=== PATIENT | female | born 1960 | race Two or more races ===

== ENCOUNTER 2024-09-04 15:43 | Emergency (ER) | payer MEDICARE, MEDICAID, SELFPAY ==
[2024-09-04 15:45] VITALS: BMI 28.1
[2024-09-04 16:11] VITALS: BP 123/73; PULSE 84; RESP 17; TEMP 36.8; O2SAT 99
--- NOTE | 2024-09-04 16:18 | PD.EDADULT ---
ED General RME/HPI General Chief complaint: General Adult/Misc Complain Stated complaint: HIGH BLOOD PRESSURE CRAMPED FINGER Time Seen by Provider: 09/04/24 16:00 Source: patient Arrival date/time: 09/04/24 15:43 63-year-old female with no known medical history presents to the emergency room with a chief complaint of a cramping to her left hand Mode of arrival: ambulatory Limitations: no limitations Related Data Allergies Allergy/AdvReac Type Severity Reaction Status Date / Time NKA* Allergy Uncoded 09/04/24 15:46 Review of Systems Review of Systems Systems Reviewed: All systems reviewed, normal except as documented Constitutional Constitutional: Reports system reviewed and no additional complaints, except as documented, Denies fatigue, Denies fever(s), Denies headache(s) and Denies weakness Eyes Eyes: Reports system reviewed and no additional complaints, except as documented, Denies blurry vision and Denies change in vision ENT Ears, Nose, Mouth, and Throat: Reports system reviewed and no additional complaints, except as documented, Denies otalgia, Denies headache(s), Denies nasal congestion, Denies throat swelling and Denies vertigo Cardiovascular Cardiovascular: Reports system reviewed and no additional complaints, except as documented, Denies chest pain, Denies dyspnea and Denies dyspnea on exertion Respiratory Respiratory: Reports system reviewed and no additional complaints, except as documented, Denies chest congestion, Denies cough, Denies dyspnea, Denies dyspnea on exertion and Denies wheezing Gastrointestinal Gastrointestinal: Reports system reviewed and no additional complaints, except as documented, Denies abdominal pain, Denies cramping, Denies nausea and Denies vomiting Genitourinary Genitourinary: Reports system reviewed and no additional complaints, except as documented Musculoskeletal Musculoskeletal: Reports system reviewed and no additional complaints, except as documented and Denies back pain Integumentary/Breasts Skin/Breast: Reports system reviewed and no additional complaints, except as documented and Denies wounds Neurologic Neurologic: Reports system reviewed and no additional complaints, except as documented, Denies confusion, Denies headache(s), Denies lack of coordination, Denies vertigo and Denies weakness Psychiatric Psychiatric: Reports system reviewed and no additional complaints, except as documented, Denies anxiety, Denies confusion, Denies depression, Denies paranoia, Denies suicidal ideation and Denies tactile hallucinations Endocrine Endocrine: Reports system reviewed and no additional complaints, except as documented and Denies fatigue Hematologic/Lymphatic Hematologic/Lymphatic: Reports system reviewed and no additional complaints, except as documented and Denies lymphadenopathy Allergic/Immunologic Allergic/Immunologic: Reports system reviewed and no additional complaints, except as documented, Denies throat swelling, Denies urticaria and Denies wheezing ED Exam General Limitations: Present no limitations General appearance: Present alert and in no apparent distress Head Head exam: Present atraumatic Eye Eye exam: Present normal appearance, PERRL and EOMI ENT ENT exam: Present normal exam, normal oropharynx and mucous membranes moist Neck Neck exam: Present normal inspection, full ROM and trachea midline Chest Chest inspection: Present normal inspection and symmetric chest wall rise Respiratory Respiratory exam: Present normal lung sounds bilaterally Cardiovascular Cardiovascular exam: Present regular rate, normal rhythm and normal heart sounds Abdominal Exam Abdominal exam: Present soft and normal bowel sounds Extremities Exam Extremities exam: Present normal inspection and full ROM Back Exam Back exam: Present normal inspection and full ROM Neurological Exam Neurological exam: Present alert, oriented X3 and CN II-XII intact Psychiatric Psychiatric exam: Present normal affect and normal mood Skin Skin exam: Present warm, dry, intact and normal color Course Quality Measures none Orders Category Date Time Status CBC Stat Lab 09/04/24 16:33 Completed CMP [Comprehensive Metabolic Panel] Stat Lab 09/04/24 16:33 Completed Potassium Chloride [K-Dur] Med 09/04/24 17:22 Discontinued 40 meq PO X1 ONE Vital Signs Vital signs: Vital Signs Temperature 98.3 F 09/04/24 16:11 Pulse Rate 84 09/04/24 16:11 Respiratory Rate 17 09/04/24 16:11 Blood Pressure 123/73 09/04/24 16:11 Pulse Oximetry (%) 99 09/04/24 16:11 Oxygen Delivery Method Room Air 09/04/24 16:11 Discharge Plan Plan Patient Disposition: HOME (Self Care) Discharge Disposition comment: Stable Prescriptions/Referrals Referrals: Eros Holm MD [Primary Care Provider] - In 1 week Problem List Clinical Impression: Hand cramps, Hypokalemia Patient/Caregiver Discharge Instructions Education Materials: ED Muscle Spasm Additional Instructions: Por favor, consulte con reis m?dico de cabecera en las pr?ximas 24 a 48 horas. Zari an?lisis de mainor estaban dentro de los l?mites normales. Reis potasio estaba ligeramente disminuido, lo cual podr?a ser la causa de zari calambres. Si observa cualquier signo de empeoramiento de los signos o s?ntomas, acuda a urgencias de inmediato. Print Language: Egyptian Stand Alone Forms: Malia Award Info., Patient Portal Info Letter PA/LUCILLE Supervising Physician PA/IT SALES CONSULTANT Supervising Physician: Dr Marilu MAGUIRE Narrative MDM hospital course: 63-year-old female with no known medical history presents to the emergency room with a chief complaint of a cramping to her left hand Patient is hemodynamically stable and in no apparent distress Physical examination just shows some cramping that is now resolved to the patient's left hand. The patient denies any chest pain any shortness of breath any numbness to her hands feet or anywhere else in the body. CBC CMP were completed and showed some mild hypokalemia. Potassium was given to the patient Patient was discharged and educated to follow-up with primary care provider in the next 24 to 48 hours and return to the emergency room for any evidence of worsening signs or symptoms Clinical Information Provided by none Medical Records Reviewed None Meds/Rx Considered, not Ordered None Labs/Rad/Tests considered, not Ordered None Chronic Illness/Social Conditions which may negatively complicate care or outcome(s)-explain: None or not applicable EKG EKG not done Lab Interpretation Labs: none Imaging Imaging interpretation: none Medication Administration(s) Medication Administration History Discontinued Medications Potassium Chloride (Potassium Chloride 20 Meq Tabcr) 40 meq PO X1 ONE Stop: 09/04/24 17:23 Last Admin: 09/04/24 17:41 Dose: 40 meq Documented By: OA Diagnosis Differential diagnosis: Hypokalemia/electrolyte imbalance/AR Differential dx and/or dx ruled out: Electrolyte imbalance/AR Most likely dx, and/or detailed dx discussion: Hypokalemia Dispositon Disposition: Discharge Home
[2024-09-04 16:54] LABS: Basophils % (Auto) 1 % (0-2.5); Eosinophils # (Auto) 0.1 Thou/mm3 (0.0-0.5); Eosinophils % (Auto) 1 % (0-10); Hematocrit 27.5 % (36.0-46.0); Hemoglobin 9.6 g/dL (12.0-16.0); Immature Granulocytes % (Auto) 0 % (0-0); Immature Granulocytes Auto 0.01 Thou/mm3 (0.00-0.00); Lymphocytes # (Auto) 0.8 Thou/mm3 (1.0-4.8); Lymphocytes % (Auto) 18 % (10-50); Mean Corpuscular HGB Conc 34.9 g/dl (31.0-37.0); Mean Corpuscular Hemoglobin 29.4 pg (25.0-35.0); Mean Corpuscular Volume 84 fL (80-100); Monocytes # (Auto) 0.3 Thou/mm3 (0.0-0.8); Monocytes % (Auto) 7 % (0-12); Neutrophils # (Auto) 3.2 Thou/mm3 (1.8-7.7); Neutrophils % (Auto) 74 % (37-80); Nucleated Red Blood Cell % 0 /100 WBC (0); Platelet Count 162 Thou/mm3 (140-440); RDW Standard Deviation 39.5 fL (36.4-46.3); Red Blood Count 3.27 Miln/mm3 (4.00-5.20); White Blood Count 4.3 Thou/mm3 (3.6-11.0)
[2024-09-04 17:05] LABS: Alanine Aminotransferase 14 U/L (10-49); Albumin, Serum 4.3 gm/dL (3.4-4.8); Albumin/Globulin Ratio 2.5 (1.2-2.2); Alkaline Phosphatase 67 U/L (46-116); Anion Gap 11 (7-16); Aspartate Amino Transferase 20 U/L (0-34); BUN/Creatinine Ratio 16 Ratio (12-20); Bilirubin,Total 0.4 mg/dL (0.3-1.2); Blood Urea Nitrogen 14 mg/dL (9-23); Calcium 8.7 mg/dL (8.3-10.6); Calcium (Corrected) 8.7 mg/dL (8.5-10.1); Carbon Dioxide 24.9 mMol/L (20.0-31.0); Chloride 106 mMol/L (98-107); Creatinine (Component) 0.9 mg/dL (0.6-1.3); Estimated Creatinine Clearance 57.1 mL/min (>60); Globulin 1.7 gm/dL (2.3-3.5); Glucose 113 mg/dL (74-106); Osmolality,Calculated 284 (275-295); Potassium 3.3 mMol/L (3.4-5.1); Sodium 142 mMol/L (136-145); eGFR > 60 See Note
[2024-09-04] MEDS: POTASSIUM CHLORIDE 20 mEq TABCR 40 MEQ PO (17:41)
== END 2024-09-04 17:43 | disposition home or self-care (01) ==
PROVIDERS: Nurse Practitioner Family; Emergency Provider Emergency Medicine; PCP Family Medicine
DX: E87.6 Hypokalemia (principal)
CPT/HCPCS: 36415; 80053; 85025; 99283; A9270

== ENCOUNTER 2024-10-18 22:45 | Emergency (ER) | payer MEDICARE, MEDICAID, SELFPAY ==
[2024-10-18 22:46] VITALS: BMI 28.5
[2024-10-18 23:27] VITALS: BP 133/77; PULSE 102; RESP 20; TEMP 37.3; O2SAT 99
[2024-10-19 00:38] LABS: Collection Type, Urine Clean Catch
[2024-10-19 00:44] LABS: Bacteria,Urine 1+; Bilirubin,Urine Negative (Negative); Blood,Urine 3+ (Negative); Clarity,Urine Turbid (Clear/Hazy); Color,Urine Colorless (Lt Yel-Yel); Glucose, Urine Negative (Negative); Ketones,Urine Negative (Negative); Leukocyte Esterase,Urine Positive (Negative); Nitrite,Urine Negative (Negative); PH,Urine 7.0 (5.0-7.0); Protein,Urine Negative (Neg - Trace); RBC,Urine 6 /hpf (0-3); Specific Gravity,Urine 1.005 (1.001-1.035); Squamous Epithelial Cell,Urine < 1 /hpf (0-5); Urobilinogen,Urine Negative mg/dL (0.0-1.0); WBC,Urine 146 /hpf (0-5)
[2024-10-19 00:45] LABS: Culture Indicated,Urine Yes
[2024-10-19 01:28] VITALS: BP 130/75; PULSE 91; RESP 18; TEMP 37.1; O2SAT 98
--- NOTE | 2024-10-19 01:48 | EDNOTE_ITS ---
ED Female Urogenital RME/HPI General Chief complaint: Urogenital-Female Stated complaint: PAIN AND BURNING WITH URINATION Time Seen by Provider: 10/18/24 22:48 Arrival date/time: 10/18/24 22:45 RME / HPI RME / HPI Narrative: 63-year-old female presents to the ED with a complaint of urinary frequency and dysuria that began this morning. She denies any fever but states she had chills this afternoon. She denies nausea or vomiting, flank pain, abdominal pain, or low back pain. She states her last UTI was over 30 years ago and remembers the feeling well. Related Data Previous Rx's ?Medication ?Instructions ?Recorded nitrofurantoin 100 mg PO Q12H 5 days #10 ca ps 10/19/24 monohydrate/macrocrystals 100 mg capsule (Macrobid) phenazopyridine 200 mg tablet 200 mg PO TID PRN Dysuri a 6 doses 10/19/24 (Pyridium) #6 tabs Allergies Allergy/AdvReac Type Severity Reaction Status Date / Time NKA* Allergy Uncoded 09/04/24 15:46 Review of Systems Review of Systems Systems Reviewed: All systems reviewed, normal except as documented Past Medical History Social History SMOKING STATUS: Never smoker ED Exam Narrative Physical exam: A&O, afebrile and non-toxic appearing, very pleasant 63-year-old female, no acute distress. Lung are clear, RRR, Abdomen is soft, no tenderness with the exception of the suprapubic area, and non-distended. No flank or CVA tenderness on exam. Moves all extremities well. Course Course Course Narrative: Urinalysis reveals turbid colorless urine with a specific gravity of 1.005 with 3+ blood, negative nitrites, positive leukocyte esterase, 6 RBCs, 146 WBCs and 1+ bacteria. Urine culture is currently pending. Patient was given her first dose of oral antibiotics while here in the ED. Quality Measures none Orders Category Date Time Status Urinalysis, C/S if Indicated Stat Lab 10/19/24 00:20 Completed Urine Culture Stat Lab 10/19/24 00:20 Received Vital Signs Vital signs: Vital Signs Temperature 99.1 F 10/18/24 23:27 Pulse Rate 102 H 10/18/24 23:27 Respiratory Rate 20 10/18/24 23:27 Blood Pressure 133/77 H 10/18/24 23:27 Pulse Oximetry (%) 99 10/18/24 23:27 Oxygen Delivery Method Room Air 10/18/24 23:27 Urogenital - Female Patient data External records reviewed:: None Clinical information provided by:: patient Social determinants that could affect healthcare access:: none Patient has the following chronic illnesses:: N/A How is presenting disease/condition affected by chronic disease/condition?: no chronic disease Evaluation data The following diagnostics were reviewed and interpreted by me:: lab results Lab and/or radiology exams considered but not ordered:: N/A Interpretation Summary: As noted above Medications / Prescriptions Medications or Prescriptions considered but not ordered:: N/A Medication administrations:: Nitrofurantoin 100 mg capsule p.o. Consultations Consultation(s) initiated? (list below): No Diagnosis Urogenital Female Differential Diagnosis: urinary tract infection, cystitis and other (Pyelonephritis) Most likely diagnosis given after review of the tests above:: Acute lower urinary tract infection. Admission Indicated Admission indicated?: not indicated Explain why admission is indicated or not indicated:: Patient is stable for discharge Admission Request Was there a request for admission?: No Disposition Plan Disposition Plan: Discharge Discharge Attestation Discharge Attestation: The patient and all family members were given an opportunity to ask questions and understood the discharge instructions. Discharge instructions specifically effects, indications for sooner follow up or return to the emergency department, and the expected course of current diagnosis. Patient condition: Stable Discharge Plan Plan Patient Disposition: HOME (Self Care) Discharge Disposition comment: Stable Prescriptions/Referrals Prescriptions/Med Rec: New nitrofurantoin monohyd/m-cryst [Macrobid] 100 mg capsule 100 mg PO Q12H 5 Days Qty: 10 0RF Rx Instructions: must administer with a meal/food phenazopyridine [Pyridium] 200 mg tablet 200 mg PO TID PRN (Reason: Dysuria) Qty: 6 0RF Referrals: Eros Holm MD [Primary Care Provider] - In 1 week Problem List Clinical Impression: Urinary tract infection Patient/Caregiver Discharge Instructions Education Materials: Urinary Tract Infections in Women, ED CYSTITIS Female Adult Additional Instructions: [place] los antibioticos corinne lo prescrito y complete elcurso a pesar de que puede sentirse major. Bryan un seguimiento con reis medico de atencion primaria en 24 a 48 horas. Regresar al departamento de emergencias por cualquier sintoma nuevo o que empeore. Print Language: Pal[place] Stand Alone Forms: Malia Award Info., Patient Portal Info Letter PA/FACILITY PRACTICE SPECIALIST Supervising Physician PA/FACILITY PRACTICE SPECIALIST Supervising Physician: Dr. Mills
== END 2024-10-19 02:12 | disposition home or self-care (01) ==
PROVIDERS: Physician Assistant; Emergency Provider Emergency Medicine; PCP Family Medicine
DX: N39.0 Urinary tract infection, site not specified (principal)
CPT/HCPCS: 81001; 87077; 87086; 87186; 99283

== ENCOUNTER → 2025-01-02 | Outpatient (CLI) | payer MEDICARE, MEDICAID, SELFPAY ==
[2025-01-02 09:10] LABS: Collection Type, Urine Clean Catch
[2025-01-02 09:40] LABS: Basophils # (Auto) 0.0 Thou/mm3 (0.0-0.2); Basophils % (Auto) 1 % (0-2.5); Eosinophils # (Auto) 0.1 Thou/mm3 (0.0-0.5); Eosinophils % (Auto) 2 % (0-10); Hematocrit 33.1 % (36.0-46.0); Hemoglobin 11.3 g/dL (12.0-16.0); Immature Granulocytes Auto 0.01 Thou/mm3 (0.00-0.00); Lymphocytes # (Auto) 1.0 Thou/mm3 (1.0-4.8); Lymphocytes % (Auto) 28 % (10-50); Mean Corpuscular HGB Conc 34.1 g/dl (31.0-37.0); Mean Corpuscular Hemoglobin 28.9 pg (25.0-35.0); Mean Corpuscular Volume 85 fL (80-100); Monocytes # (Auto) 0.3 Thou/mm3 (0.0-0.8); Monocytes % (Auto) 9 % (0-12); Neutrophils # (Auto) 2.2 Thou/mm3 (1.8-7.7); Neutrophils % (Auto) 61 % (37-80); Nucleated Red Blood Cell # 0.00 Thou/mm3 (0.00-0.00); Nucleated Red Blood Cell % 0 /100 WBC (0); Platelet Count 159 Thou/mm3 (140-440); RDW Standard Deviation 39.8 fL (36.4-46.3); Red Blood Count 3.91 Miln/mm3 (4.00-5.20); White Blood Count 3.7 Thou/mm3 (3.6-11.0)
[2025-01-02 09:48] LABS: Glucose Estimated Average 114 mg/dL (80-131); Hemoglobin A1C 5.6 % Hgb (4.8-6.0)
[2025-01-02 09:49] LABS: Bilirubin,Urine Negative (Negative); Blood,Urine Negative (Negative); Clarity,Urine Clear (Clear/Hazy); Color,Urine Lt-Yellow (Lt Yel-Yel); Glucose, Urine Negative (Negative); Ketones,Urine Negative (Negative); Leukocyte Esterase,Urine Negative (Negative); Nitrite,Urine Negative (Negative); PH,Urine 6.0 (5.0-7.0); Protein,Urine Negative (Neg - Trace); RBC,Urine 1 /hpf (0-3); Specific Gravity,Urine 1.014 (1.001-1.035); Squamous Epithelial Cell,Urine < 1 /hpf (0-5); Urobilinogen,Urine Negative mg/dL (0.0-1.0); WBC,Urine 1 /hpf (0-5)
[2025-01-02 09:53] LABS: Creatinine MALB Rnd Ur 73 mg/dL (30-125); Microalbumin, Random Urine < 3 mg/L (0-300)
[2025-01-02 09:58] LABS: Alanine Aminotransferase 15 U/L (10-49); Albumin, Serum 4.3 gm/dL (3.4-4.8); Albumin/Globulin Ratio 2.4 (1.2-2.2); Alkaline Phosphatase 63 U/L (46-116); Anion Gap 9 (7-16); Aspartate Amino Transferase 19 U/L (0-34); BUN/Creatinine Ratio 12 Ratio (12-20); Bilirubin,Total 0.5 mg/dL (0.3-1.2); Blood Urea Nitrogen 12 mg/dL (9-23); Calcium 9.3 mg/dL (8.3-10.6); Calcium (Corrected) 9.3 mg/dL (8.5-10.1); Carbon Dioxide 25.6 mMol/L (20.0-31.0); Cardiac Risk Estimate 4.4 RATIO (3.7-5.6); Chloride 110 mMol/L (98-107); Cholesterol 157 mg/dL (132-200); Creatinine (Component) 1.0 mg/dL (0.6-1.3); Free T4 (Free Thyroxine) 1.18 ng/dL (0.89-1.76); Globulin 1.8 gm/dL (2.3-3.5); Glucose 109 mg/dL (74-106); HDL Cholesterol 36 mg/dL (40-60); LDL Cholesterol,Calculated 54 mg/dL (0-130); Osmolality,Calculated 289 (275-295); Potassium 3.9 mMol/L (3.4-5.1); Sodium 145 mMol/L (136-145); Thyroid Stimulating Hormone 3.70 uIU/mL (0.55-4.78); Total Protein 6.1 gm/dL (5.7-8.2); Triglycerides 334 mg/dL (30-150); eGFR > 60 See Note
[2025-01-02 10:00] LABS: Vitamin D 25 Hydroxy Total 59.4 ng/mL (7.3-40.2)
== END | disposition home or self-care (01) ==
LOC: COPL 08:31
DX: I10 Essential (primary) hypertension (principal)
CPT/HCPCS: 36415; 80053; 80061; 81001; 82043; 82306; 82570; 83036; 84439; 84443; 85025